=== PATIENT | female | born 1935 | race Caucasian/White ===

== ENCOUNTER → 2020-04-19 | Outpatient (CLI) | payer MEDICARE ==
[~2020-04-19] MED LIST: ACTOS15 MG PO; ALL DAY ALLERGY10 M2 PO; ATIVAN0.5 MG PO; SYNTHROID75 MCG PO; VENTOLIN HFA 66.7 GM INH; VITAMIN D 40400 UNIT PO; ZIAC 2.5-6.251 EACH PO; ZOCOR10 MG PO
[2020-04-20 09:14] LABS: SARS COV-2 IGG AB Negative (Negative)
== END ==
LOC: LAB 13:27
PROVIDERS: Internal Medicine
DX: Z01.84 Encounter for antibody response examination (principal); C83.39 Diffuse large B-cell lymphoma, extranodal and solid organ sites
CPT/HCPCS: 36415; 86769

== ENCOUNTER → 2020-05-02 | Outpatient (CLI) | payer MEDICARE | LOC: CT 12:28 | DX: C83.39 Diffuse large B-cell lymphoma, extranodal and solid organ sites (principal); C91.40 Hairy cell leukemia not having achieved remission; I65.21 Occlusion and stenosis of right carotid artery | CPT/HCPCS: 36415; 70491; 71260; 82565; 96523; J1642; Q9965 ==

== ENCOUNTER → 2020-05-20 | Outpatient (CLI) | payer MEDICARE ==
[2020-05-21 17:09] LABS: SARS COV-2 IGM AB Negative (Negative)
[2020-05-22 10:10] LABS: SARS COV-2 IGG AB Negative (Negative)
== END ==
LOC: LAB 11:41
PROVIDERS: Internal Medicine
DX: C91.40 Hairy cell leukemia not having achieved remission (principal); R22.1 Localized swelling, mass and lump, neck; I50.9 Heart failure, unspecified; Z01.84 Encounter for antibody response examination
CPT/HCPCS: 36415; 86769

== ENCOUNTER → 2020-12-23 | Outpatient (CLI) | payer MEDICARE | LOC: CT 09:39 | DX: C91.41 Hairy cell leukemia, in remission (principal); R22.1 Localized swelling, mass and lump, neck; I50.9 Heart failure, unspecified | CPT/HCPCS: 70491; 71260; Q9967 ==

== ENCOUNTER → 2021-05-01 | Outpatient (CLI) | payer MEDICARE | LOC: OPSV 08:35 → CT 09:00 | DX: C91.41 Hairy cell leukemia, in remission (principal); R22.1 Localized swelling, mass and lump, neck | CPT/HCPCS: 70491; 71260; 96360; 96361; J7050; Q9967 ==

== ENCOUNTER → 2021-12-22 | Outpatient (CLI) | payer MEDICARE | LOC: CT 09:00 | DX: C91.40 Hairy cell leukemia not having achieved remission (principal); R22.1 Localized swelling, mass and lump, neck; I71.2 Thoracic aortic aneurysm, without rupture; Z90.49 Acquired absence of other specified parts of digestive tract | CPT/HCPCS: 71270; Q9967 ==